=== PATIENT | female | born 1935 | race Hispanic/Latino ===

== ENCOUNTER 2017-06-19 18:50 | Emergency (ER) | payer MEDICARE, MEDICAID ==
[2017-06-19 19:29] LABS: HEMATOCRIT 35.9 % (37.0-47.0); HEMOGLOBIN 12.1 g/dl (12.0-16.0); IMMATURE GRANULOCYTES 0.4 % (0.0-1.0); MEAN CELL VOLUME 92.1 fL CALC (80.0-100.0); MEAN CORPUSCULAR HGB CONC 33.7 g/L CALC (32.0-36.0); NEUT# 1.25 thou/uL (2.00-7.15); RED BLOOD COUNT 3.9 mill/uL (4.20-5.60); RED CELL DISTRI WIDTH 15.6 % (11.5-15.5)
[2017-06-19 19:51] LABS: ALBUMIN 4.9 g/dL (3.2-5.0); ALKALINE PHOSPHATASE 329 u/l (38-126); ANION GAP 17 (6-22 (CALC)); BILIRUBIN, TOTAL 1.5 mg/dL (0.0-1.4); BUN 24 mg/dL (8-23); BUN/CREATININE RATIO 39 (12-20 (CALC)); CALCIUM 9.6 mg/dL (8.4-10.2); CARBON DIOXIDE 31 mmol/l (22-30); CHLORIDE 105 mmol/l (95-108); CREATININE 0.6 mg/dL (0.5-1.0); GFR > 60 ML/MIN (>=60 (CALC)); GFR FOR AFR.AMER. > 60 ML/MIN (>=60 (CALC)); GLUCOSE 332 mg/dL (82-115); POTASSIUM 2.9 mmol/l (3.5-5.1); SODIUM 150 mmol/l (137-146); TOTAL PROTEIN 8.4 g/dL (6.3-8.2)
[2017-06-19 20:16] LABS: MYOGLOBIN 1387 ng/mL (0 - 62)
[2017-06-19 20:17] LABS: SGPT/ALT 1630 u/l (11-66)
[2017-06-19 20:39] LABS: SGOT/AST 3963 u/l (9-36)
[2017-06-19 20:46] VITALS: BP 77/48
[2017-06-19 20:48] LABS: URINE BILIRUBIN - DIPSTICK NEGATIVE (NEGATIVE); URINE BLOOD DIPSTICK MODERATE (NEGATIVE); URINE COLOR YELLOW; URINE GLUCOSE - DIPSTICK >=1000 mg/dL (NEGATIVE); URINE KETONE NEGATIVE (NEGATIVE); URINE LEUK ESTERASE NEGATIVE (NEGATIVE); URINE NITRITE - DIPSTICK NEGATIVE (Negative); URINE PROTEIN - DIPSTICK 100 mg/dL (NEG-TRACE); URINE SPECIFIC GRAVITY 1.025
[2017-06-19 20:49] LABS: URINE CLARITY TURBID
[2017-06-19 21:02] LABS: URINE BACTERIA FEW hpf; URINE RBC 25-50 RBC/hpf (0-5); URINE SQUAMOUS EPITHELIAL CELL FEW EPI/hpf (0-FEW)
== END 2017-06-19 20:46 | disposition short-term general hospital (02) ==
LOC: ED
PROVIDERS: Emergency Medicine
PROC: 0T9B70Z Drainage of Bladder with Drainage Device, Via Natural or Artificial Opening (ICD-10-PCS; principal; 2017-06-19)
DX: T68.XXXA Hypothermia, initial encounter (principal); R00.1 Bradycardia, unspecified; M62.82 Rhabdomyolysis; E87.6 Hypokalemia; R41.82 Altered mental status, unspecified; I10 Essential (primary) hypertension; I69.354 Hemiplegia and hemiparesis following cerebral infarction affecting left non-dominant side; Z95.818 Presence of other cardiac implants and grafts

== ENCOUNTER 2020-01-05 20:15 | Inpatient (IN) | payer MEDICARE, MEDICAID ==
[~2020-01-05] VITALS: Ht 152.4 cm; Wt 39.9 kg
--- NOTE | 2020-01-05 20:23 | NUR ---
md and rt at bedside, 7.0 et tube placed, secured 23 a lip. 02 99%. pt medicated wtih succinylcholline 90mgivp prior to intubation.
[2020-01-05] MEDS ORDERED: (None)0.5 MG PO (20:32)
[2020-01-05] MEDS ORDERED: OMEGA 31000 MG PO (20:32)
[2020-01-05] MEDS ORDERED: LOPRESSOR25 M1 PO (20:33)
[2020-01-05] MEDS ORDERED: LEVOTHYROXIN100 MCG PO (20:34)
[2020-01-05] MEDS ORDERED: PLAVIX75 MG PO (20:34)
--- NOTE | 2020-01-05 20:35 | NUR ---
ETT REPOSITIONED TO 21 AT LIP. 18 FR SALEM SUMP PLACED AND CONFIRMED BY AUSCUTATION.
[2020-01-05 21:16] LABS: IMMATURE GRANULOCYTES 0.7 % (0.0-5.0); MEAN CORPUSCULAR HGB 30.3 pG CALC (26.0-32.0); MEAN CORPUSCULAR HGB CONC 35.9 g/dL CAL (32.0-36.0)
--- NOTE | 2020-01-05 21:25 | NUR ---
VENT SETTINGS: AC RATE 16 FIO2 50% VT 400 PEEP 5
[2020-01-05 21:30] LABS: ALBUMIN 4.1 g/dL (3.2-5.0); BILIRUBIN, TOTAL 1.2 mg/dL (0.0-1.4); BUN 24 mg/dL (8-23); BUN/CREATININE RATIO 40 (12-20 (CALC)); CARBON DIOXIDE 26 mmol/l (22-30); CREATININE 0.6 mg/dL (0.5-1.0); GFR > 60 ML/MIN (>=60 (CALC)); GFR FOR AFR.AMER. > 60 ML/MIN (>=60 (CALC)); TOTAL PROTEIN 7.4 g/dL (6.3-8.2)
[2020-01-05 21:34] LABS: HEMATOCRIT 26.2 % (37.0-47.0); HEMOGLOBIN 9.4 g/dl (12.0-16.0); MEAN CELL VOLUME 84.5 fL CALC (80.0-100.0); PLATELET COUNT 218 thou/uL (130-400)
[2020-01-05 21:35] LABS: BAND 12 % (0-8); IMMATURE CELLS 0 %; MANUAL DIFFERENTIAL YES
[2020-01-05 21:37] LABS: INTERNATIONAL NORMALIZED RATIO 1.1 RATIO (0.7-1.3); PROTHROMBIN TIME 11.2 SECONDS (9.0-12.5)
[2020-01-05 21:48] LABS: ALKALINE PHOSPHATASE 104 u/l (38-126); ANION GAP 14 (6-22 (CALC)); CHLORIDE 80 mmol/l (95-108); MYOGLOBIN 510 ng/mL (0 - 62); POTASSIUM 4.1 mmol/l (3.5-5.1); SGOT/AST 105 u/l (9-36)
[2020-01-05 21:57] LABS: SODIUM 116 mmol/l (137-146)
--- NOTE | 2020-01-05 22:13 | NUR ---
ZELAYA INSERTION ATTEMPTED WITHOUT SUCCESS.
--- NOTE | 2020-01-05 23:38 | NUR ---
AC 16 BPM,SR NO ECTOPY W/D SKIN
[2020-01-06] VITALS (36 sets, daily range): BP systolic 29–136; BP diastolic 19–81
[2020-01-06 00:20] LABS: URINE BILIRUBIN - DIPSTICK NEGATIVE (NEGATIVE); URINE BLOOD DIPSTICK SMALL (NEGATIVE); URINE COLOR YELLOW; URINE GLUCOSE - DIPSTICK NEGATIVE (NEGATIVE); URINE KETONE NEGATIVE (NEGATIVE); URINE LEUK ESTERASE NEGATIVE (NEGATIVE); URINE PH 5.5 (4.5-8.0); URINE PROTEIN - DIPSTICK >=300 mg/dL (NEG-TRACE); URINE SPECIFIC GRAVITY 1.025
[2020-01-06 00:25] LABS: URINE NITRITE - DIPSTICK POSITIVE (Negative)
[2020-01-06 00:40] LABS: URINE BACTERIA MODERATE hpf; URINE EPITHELIAL CELLS MODERATE EPI/hpf (0-FEW)
--- NOTE | 2020-01-06 00:50 | NUR ---
PT REPORT TO MIMI CHOI IN ICU
--- NOTE | 2020-01-06 01:10 | NUR ---
PT TRANSPORTED TO ICU VIA TELE IN STABLE CONDITION
--- NOTE | 2020-01-06 01:10 | NUR ---
RECEIVED PT TO ICU BED 4. PT UNRESPONSIVE ON A VENT. TRANSFERRED TO BED WITHOT INCIDENT.
--- NOTE | 2020-01-06 01:30 | NUR ---
DR SANTAMARIA CALLED FOR HYPOTENSION AND BRADYCARDIA. B/P INITIAL P 38. ORDERS RECEIVED.
--- NOTE | 2020-01-06 03:00 | NUR ---
DR LOPEZ AT BEDSIDE FOR TRIPLE LUMEN C-LINE INSERTION.
--- NOTE | 2020-01-06 03:56 | NUR ---
PORT CHEST XRAY ACCOMP FOR LINE PLACEMENT.
--- NOTE | 2020-01-06 04:35 | NUR ---
R IJ C-LINE OK TO USE PER DR LOPEZ.
--- NOTE | 2020-01-06 05:25 | NUR ---
PT OPENING EYES, STARTING TO MOVE LOWER EXTREMITIES. PROVIDED REASSURANCE TO PT AND EXPLAINED WHAT WAS GOING ON.
[2020-01-06 06:09] LABS: BUN 22 mg/dL (8-23); BUN/CREATININE RATIO 46 (12-20 (CALC)); CARBON DIOXIDE 22 mmol/l (22-30); CREATININE 0.5 mg/dL (0.5-1.0); GFR > 60 ML/MIN (>=60 (CALC)); GFR FOR AFR.AMER. > 60 ML/MIN (>=60 (CALC)); HEMATOCRIT 22.5 % (37.0-47.0); HEMOGLOBIN 8.4 g/dl (12.0-16.0); IMMATURE GRANULOCYTES 0.7 % (0.0-5.0); MAGNESIUM 1.7 mg/dL (1.6-2.3); MEAN CELL VOLUME 80.4 fL CALC (80.0-100.0); MEAN CORPUSCULAR HGB CONC 37.3 g/dL CAL (32.0-36.0); NEUT# 2.39 thou/uL (2.00-7.15); RED BLOOD COUNT 2.8 mill/uL (4.20-5.60); RED CELL DISTRI WIDTH 14.8 % (11.5-15.5)
[2020-01-06 06:23] LABS: ANION GAP 10 (6-22 (CALC)); CHLORIDE 93 mmol/l (95-108); POTASSIUM 2.9 mmol/l (3.5-5.1); SODIUM 122 mmol/l (137-146)
--- NOTE | 2020-01-06 06:56 | NUR ---
REPORT TO RIGOBERTO CHOI
--- NOTE | 2020-01-06 07:31 | NUR ---
DISCUSSED PTS CONDITION WITH DR SANTAMARIA; ADDED UDS ORDER. BRUISES PHOTOGRAPHED. WEIGHT VERIFIED. PROPOFOL STARTED, LEVOPHED TITRATED. SUCTION SETUP PLACED IN ROOM. ORAL CARE COMPLETED INCLUDING SUCTION. LEFT FOOT IV D/C, TIP INTACT, DRESSING APPLIED. FACE PHOTOGRAPHED FOR IDENTIFIERS. PT WAS MOVING AROUND IN BED, EYES OPEN, BEFORE PROPOFOL STARTED. PT NOW CALM, APPEARS RESTFUL.
--- NOTE | 2020-01-06 08:47 | NUR ---
RECTAL TEMP 91.6; BARE HUGGER APPLIED.
--- NOTE | 2020-01-06 08:56 | NUR ---
CRISTOPHER Morrow ON UNIT FROM [facility].
--- NOTE | 2020-01-06 11:22 | NUR ---
DR. SANTAMARIA NOTIFIED TO UPDATE OF PT CONDITION.
--- NOTE | 2020-01-06 12:02 | NUR ---
ENTERED ROOM UPON MAGNESIUM COMPLETION TO DISCOVER PT DEVELOPED ANGIOEDEMA. PTS MOUTH/LIPS/KAYKAY SWOLLEN. MD CALLED TO ROOM. UNKNOWN CAUSE OF EDEMA. PROPOFOL CHANGED TO VERSED DRIP. RBVO FOR STERIOD & BENEDRYL.
--- NOTE | 2020-01-06 15:28 | NUR ---
PTS MOUTH REMAINS EDEMOUS. NOTIFIED. FAXED ORDER FOR REPEAT BENEDRYL TO .
--- NOTE | 2020-01-06 18:45 | NUR ---
RECEIVED REPORT FROM RIGOBERTO CHOI.
--- NOTE | 2020-01-06 20:00 | NUR ---
EDEMA NOTED TO LIPS. REMAINS ON VENT, NG TO INTERM SUCTION WITH BROWN DRAINAGE. BEAR HUGGER ON T 97.9 PT RESPONDS TO TACTILE STIMULI.
--- NOTE | 2020-01-06 22:00 | NUR ---
PT REMAINS SEDATED ON VENT. VSS PER MONITOR.
[2020-01-07] VITALS (23 sets, daily range): BP systolic 67–140; BP diastolic 45–91
--- NOTE | 2020-01-07 | NUR ---
EDEMA REMAINS TO LIPS, FACE. PT MOVES SLIGHTY WITH MOUTH CARE. VERSED GTT AT 1MG/HR, LEVOPHED AT 12MCGS. VSS PER MONITOR.
--- NOTE | 2020-01-07 02:00 | NUR ---
PT REMAINS SEDATED ON VENT. ANGIOEDEMA NOTED. VSS PER MONITOR.
--- NOTE | 2020-01-07 04:00 | NUR ---
PT BATH AND LINEN CHANGE ACCOMP. PT REMAINS SEDATED ON VENT.
[2020-01-07 05:58] LABS: IMMATURE GRANULOCYTES 1.7 % (0.0-5.0); MEAN CELL VOLUME 81.6 fL CALC (80.0-100.0); MEAN CORPUSCULAR HGB 30.6 pG CALC (26.0-32.0); MEAN CORPUSCULAR HGB CONC 37.5 g/dL CAL (32.0-36.0); NEUT# 16.48 thou/uL (2.00-7.15); RED BLOOD COUNT 2.94 mill/uL (4.20-5.60); RED CELL DISTRI WIDTH 15.3 % (11.5-15.5)
[2020-01-07 06:35] LABS: ANION GAP 13 (6-22 (CALC)); BUN 16 mg/dL (8-23); BUN/CREATININE RATIO 33 (12-20 (CALC)); CARBON DIOXIDE 19 mmol/l (22-30); CHLORIDE 97 mmol/l (95-108); CREATININE 0.5 mg/dL (0.5-1.0); GFR > 60 ML/MIN (>=60 (CALC)); GFR FOR AFR.AMER. > 60 ML/MIN (>=60 (CALC)); SODIUM 125 mmol/l (137-146)
[2020-01-07 06:40] LABS: POTASSIUM 3.8 mmol/l (3.5-5.1)
--- NOTE | 2020-01-07 06:55 | NUR ---
REPORT TO SWATHI CHOI
--- NOTE | 2020-01-07 06:55 | NUR ---
REPORT RECEIVED FROM ADAMARIS CHOI. CARE ASSUMED.
--- NOTE | 2020-01-07 07:20 | NUR ---
PT RESTING IN BED INTUBATED AND SEDATED. SHIFT ASSESSMENT COMPLETED AT THIS TIME. TEMP 95.7 TEMPORAL. VIRGIE CAMPBELL REAPPLIED AT THIS TIME. IV PATENT X1. CALL LIGHT IN REACH. WILL CONTINUE TO MONITOR.
--- NOTE | 2020-01-07 09:00 | NUR ---
DR KRAFT AT BEDSIDE AT THIS TIME
--- NOTE | 2020-01-07 10:01 | NUR ---
PT RESTING IN BED INTUBATED AND SEDATED. VSS ON MONITOR. WILL CONTINUE TO MONITOR.
--- NOTE | 2020-01-07 12:00 | NUR ---
PT RESTING IN BED INTUBATED AND SEDATED AT THIS TIME. VSS ON MONITOR. RT AT BEDSIDE TO SUCTION PATIENT. WILL CONTINUE TO MONITOR.
--- NOTE | 2020-01-07 14:20 | NUR ---
RECTAL TEMP CHECKED AT THIS TIME 95.8. VIRGIE HUGGER INCREASED TO HIGH.
--- NOTE | 2020-01-07 14:30 | NUR ---
DR KRAFT NOTIFIED OF INCREASED FACIAL SWELLING. NEW ORDERS RECEIVED.
--- NOTE | 2020-01-07 15:00 | NUR ---
PHONED SON KAREL LEFT MESSAGE FOR HIM TO CALL [facility] ICU
--- NOTE | 2020-01-07 15:32 | NUR ---
SPOKE WITH SON KAREL. SON IS GOING TO DISCUSS END OF LIFE DECISIONS WITH FAMILY.
--- NOTE | 2020-01-07 16:00 | NUR ---
PT RESTING IN BED INTUBATED AND SEDATED AT THIS TIME. VSS ON MONITOR. WILL CONTINUE TO CLOSELY MONITOR.
--- NOTE | 2020-01-07 17:06 | NUR ---
PHONED SON FOR FOLLOW UP AND TO TRY AND CONNECT WITH PHYSICIAN. LEFT MESSAGE TO RETURN CALL.
--- NOTE | 2020-01-07 17:33 | NUR ---
SPOKE WITH SON KAREL. HE WILL BE UP TO SEE PATIENT. HE REQUESTS THAT PATIENT BE MADE A DNR AND BE MADE COMFORTABLE.
--- NOTE | 2020-01-07 19:00 | NUR ---
SON ON UNTI TO SEE PATIENT. SON HAS DECIDED THAT HE WANTS TO MAKE PATIENT COMFORTABLE AND TO EXTUBATE AFTER SEES PATIENT. DR KRAFT NOTIFIED. ONCOMING SHIFT NOTIFIED OF THE SAME.
--- NOTE | 2020-01-07 19:35 | NUR ---
PATIENT REMAINS UNRESPONSIVE TO VERBAL, TACTILE AND PAINFUL STIMULI. REMAINS ORALLY INTUBATED. THICK CLEAR/PINK TINGED SECRETIONS SUX ORALLY. OG TUBE DRAINS GREEN. SHIFT ASSESSMENT COMPLETED. SON AND LTSXUSBY-TO-LKG IN TO SEE PATIENT-THEY DID NOT ENTER ROOM, STAYED OUTSIDE OF [place]ASS DOORS. EMOTIONAL SUPPORT PROVIDED TO FAMILY. ROSARY PLACED ON PATIENTS WRIST PER FAMILY REQUEST. FAMILY REQUEST COMFORT MEASURES ONLY.
--- NOTE | 2020-01-07 19:45 | NUR ---
DR BRAVO AWARE THAT PATIENTS FAMILY WANTS COMFORT MEASURES ONLY.
--- NOTE | 2020-01-07 20:15 | NUR ---
PT note Patient is screened for intervention and it is felt she would benefit from PT when medically stable
--- NOTE | 2020-01-07 22:00 | NUR ---
NO CHANGES TO REPORT. IVF'S DC'D. AWAITING RESPIRATORY TO EXTUBATE AND DC VENT.
--- NOTE | 2020-01-07 22:50 | NUR ---
PATIENT EXTUBATED BY Javon BUSBY/RESEARCH SUBJECT. OG TUBE DC'D. PATIENT REPOSTIONED ONTO BACK. BP 67/45, HR 76.
--- NOTE | 2020-01-07 23:00 | NUR ---
RESP AGONAL, HR 40'S.
--- NOTE | 2020-01-07 23:10 | NUR ---
RESP CEASED, NO PULSE OR BLOOD PRESSURE AUSCULATED AOR PALPATED. ASYTOLE ON MONITOR. INFORMED DR KRAFT OF PATIENT .
--- NOTE | 2020-01-07 23:12 | NUR ---
ATTEMPTED TO REACH SON KAREL HARPER AT PHONE NUMBER ON RECORED, LEFT VOICEMAIL TO CALL [facility].
--- NOTE | 2020-01-07 23:15 | NUR ---
SPOKE WITH MAURY AT [facility] TO REPORT PATIENT . PER [facility] PAITENT NOT MEDICALLY SUITABLE [facility] RE[facility]. REFERENCE #[id number].
--- NOTE | 2020-01-07 23:28 | NUR ---
SAHIL FROM [facility] RETURNED CALL THEY ARE RELEASING PATIENT.
--- NOTE | 2020-01-07 23:50 | NUR ---
REACHED SON KAREL TO INFORM LEIA . HE REQUESTS [facility] HARMON FOR ARRANGEMENTS.
--- NOTE | 2020-01-08 00:10 | NUR ---
[facility] WITH [facility]. ETA FOR [facility]ER APPROX 1 HOUR.
--- NOTE | 2020-01-08 03:00 | NUR ---
PATIENT DISCHARGED TO [facility] AT THIS TIME.
== END 2020-01-07 23:10 | disposition expired | DRG 871 ==
LOC: ED 20:15 → ED-I 22:52 → ED 23:10 → ICU 23:11
PROVIDERS: Emergency Medicine; ADMIT Internal Medicine; ATTEND Internal Medicine
PROC: 0BH17EZ Insertion of Endotracheal Airway into Trachea, Via Natural or Artificial Opening (ICD-10-PCS; principal; 2020-01-05)
PROC: 5A1945Z Respiratory Ventilation, 24-96 Consecutive Hours (ICD-10-PCS; 2020-01-05)
PROC: 02HV33Z Insertion of Infusion Device into Superior Vena Cava, Percutaneous Approach (ICD-10-PCS; 2020-01-06)
DX: A41.9 Sepsis, unspecified organism (principal); R65.21 Severe sepsis with septic shock; J18.9 Pneumonia, unspecified organism; J96.01 Acute respiratory failure with hypoxia; E87.1 Hypo-osmolality and hyponatremia; E87.2 Acidosis; D64.9 Anemia, unspecified; I11.0 Hypertensive heart disease with heart failure; I50.9 Heart failure, unspecified; E11.9 Type 2 diabetes mellitus without complications; F03.90 Unspecified dementia, unspecified severity, without behavioral disturbance, psychotic disturbance, mood disturbance, and anxiety; I95.9 Hypotension, unspecified; E87.6 Hypokalemia; E03.9 Hypothyroidism, unspecified; Z66 Do not resuscitate; Z51.5 Encounter for palliative care; Z86.73 Personal history of transient ischemic attack (TIA), and cerebral infarction without residual deficits; Z20.828 Contact with and (suspected) exposure to other viral communicable diseases
CPT/HCPCS: J3475